=== PATIENT | female | born 1990 | race Caucasian/White ===

== ENCOUNTER 2017-10-18 10:19 | Emergency (ER) | payer BC, MEDICAID ==
[2017-10-18 10:45] VITALS: BP 113/69
--- NOTE | 2017-10-18 11:18 | UC ---
Skin Complaint HPI - HPI Summary HPI Summary: 27 yo female states she found out her BF has herpes States she is now freaking out noticed some painless bumps on her right upper lip that she desires tested - History of Current Complaint Chief Complaint: UCSkin Time Seen by Provider: 10/18/17 10:55 Stated Complaint: ORAL COMPLAINT Hx Obtained From: Patient Hx Last Menstrual Period: 09/20/17 Onset/Duration: Gradual Onset, Lasting Days Timing: Constant Pain Intensity: 0 Pain Scale Used: 0-10 Numeric Location: Other - right upper lip Aggravating Factor(s): Nothing Alleviating Factor(s): Nothing Associated Signs & Symptoms: Positive: Rash - Allergy/Home Medications Allergies/Adverse Reactions: Allergies Allergy/AdvReac Type Severity Reaction Status Date / Time Penicillins Allergy FACIAL Verified 10/18/17 10:39 SWELLING Review of Systems Constitutional: Negative Skin: Negative Eyes: Negative ENT: Negative Respiratory: Negative Cardiovascular: Negative Gastrointestinal: Negative Genitourinary: Negative Motor: Negative Neurovascular: Negative Musculoskeletal: Negative Neurological: Negative Psychological: Negative Is Patient Immunocompromised?: No All Other Systems Reviewed And Are Negative: Yes PMH/Surg Hx/FS Hx/Imm Hx Previously Healthy: Yes - Surgical History Surgical History: Yes Surgery Procedure, Year, and Place: TUBES EARS - Family History Known Family History: Positive: Hypertension - Social History Alcohol Use: None Substance Use Type: None Smoking Status (MU): Never Smoked Tobacco Physical Exam Triage Information Reviewed: Yes Appearance: Well-Appearing, No Pain Distress, Well-Nourished Vital Signs: Initial Vital Signs Temp 98.9 F 10/18/17 10:41 Pulse 92 10/18/17 10:41 Resp 16 10/18/17 10:41 BP 113/69 10/18/17 10:41 Pulse Ox 100 10/18/17 10:41 Vital Signs Reviewed: Yes Eyes: Positive: Conjunctiva Clear ENT: Positive: Uvula midline. Negative: Pharynx normal, Pharyngeal erythema Neck: Positive: Supple, Nontender Respiratory: Positive: Lungs clear, Normal breath sounds, No respiratory distress, No accessory muscle use Cardiovascular: Positive: RRR Abdominal Exam: Normal Musculoskeletal Exam: Normal Neurological Exam: Normal Psychological Exam: Normal Skin: Positive: rashes Course/Dx - Diagnoses Provider Diagnoses: situational anxiety. low suspicion of herpes Discharge - Discharge Plan Condition: Stable Disposition: HOME Referrals: No Primary Care Phys,NOPCP [Primary Care Provider] - Additional Instructions: a test for herpes is pending recheck for new or worsening symptoms Images Dental: 1 - 4-5 minute papules that I would not have noticed if they weren't pointed out to me
--- NOTE | 2017-10-20 07:21 | UC ---
- Progress Note Progress Note: Please notify patient of NEGATIVE herpes test
== END 2017-10-18 11:28 | disposition home or self-care (01) ==
LOC: UCCORT 10:19
DX: F41.8 Other specified anxiety disorders (principal); Z20.828 Contact with and (suspected) exposure to other viral communicable diseases; Z88.0 Allergy status to penicillin
CPT/HCPCS: 87529; 99202; G0463